=== PATIENT | female | born 1980 | race Caucasian/White ===

== ENCOUNTER 2018-06-01 07:21 | Inpatient (IN) | payer OTHER ==
[~2018-06-01] VITALS: Ht 167.6 cm; Wt 89.5 kg
[2018-06-01] VITALS (33 sets, daily range): BP systolic 103–148; BP diastolic 51–90; PULSE 59–86; TEMP 97.7–99
[~2018-06-01 07:21] MED LIST: PRENATAL MVI; PROFERRIN ES12 MG PO; SYNTHROID 0.0.025 MG PO
[2018-06-01 09:14] LABS: BASO % 0.2 % (0.0-2.0); EOS % 0.7 % (0-4.0); GRAN # 3.6 (1.4-6.5); GRAN % 67.4 % (42.2-75.2); LYMPH # 1.3 (1.2-3.4); LYMPH % 23.6 % (20.0-51.0); MEAN CELL VOLUME 73 fl (80.0-100.0); MEAN CORPUSCULAR HGB CONC 30 g/dl (33.0-37.0); MEAN PLATELET VOLUME 12.3 fl (7.4-10.4); MONO # 0.4 (0.1-0.6); MONO % 7.9 % (1.7-9.3); PLATELET COUNT 275 K/mm3 (130-400); RED BLOOD COUNT 4.38 M/mm3 (4.10-5.30); REDCELL DISTRIBUTION WIDTH-CV 18.5 % (11.5-14.5)
[2018-06-01 09:17] LABS: HEMATOCRIT 31.8 % (37.0-47.0); HEMOGLOBIN 9.5 g/dl (12.5-16.0); MEAN CORPUSCULAR HEMOGLOBIN 22 pg (27.0-31.0)
[2018-06-01] MEDS ORDERED: PERCOCET 325 MG1 TA2 PO (14:19)
[2018-06-01] MEDS ORDERED: MOTRIN 800800 MG/TAB PO (14:19)
[2018-06-02 04:15] VITALS: BP 106/59; PULSE 73; TEMP 98.5
[2018-06-02 07:05] VITALS: BP 123/68; PULSE 68; TEMP 98
[2018-06-02 11:56] VITALS: BP 123/61; PULSE 68
[2018-06-02 19:12] VITALS: BP 112/50; PULSE 70; TEMP 97.3
[2018-06-03 08:12] VITALS: BP 126/65; PULSE 80; TEMP 98.8
== END 2018-06-03 14:40 | disposition home or self-care (01) | DRG 807 ==
LOC: LDR 07:21 → OB 15:00
PROVIDERS: Obstetrics & Gynecology
PROC: 10E0XZZ Delivery of Products of Conception, External Approach (ICD-10-PCS; principal; 2018-06-01)
PROC: 3E033VJ Introduction of Other Hormone into Peripheral Vein, Percutaneous Approach (ICD-10-PCS; 2018-06-01)
PROC: 10907ZC Drainage of Amniotic Fluid, Therapeutic from Products of Conception, Via Natural or Artificial Opening (ICD-10-PCS; 2018-06-01)
DX: O48.0 Post-term pregnancy (principal); Z37.0 Single live birth; Z3A.40 40 weeks gestation of pregnancy; O99.824 Streptococcus B carrier state complicating childbirth; O99.284 Endocrine, nutritional and metabolic diseases complicating childbirth; E03.9 Hypothyroidism, unspecified; O99.02 Anemia complicating childbirth; D64.9 Anemia, unspecified; O99.344 Other mental disorders complicating childbirth; F41.9 Anxiety disorder, unspecified
CPT/HCPCS: J2540; J2590; J7120